=== PATIENT | male | born 1970 | race Caucasian/White ===

== ENCOUNTER 2019-03-29 15:29 | Emergency (ER) | payer SELFPAY ==
--- NOTE | 2019-03-29 15:49 | PDOC ---
Rapid Medical Evaluation Chief Complaint: Pain Time Seen by Provider: 03/29/19 15:46 Medical Evaluation: Allergies Allergy/AdvReac Type Severity Reaction Status Date / Time Penicillins Allergy Swelling Verified 09/21/15 16:24 03/29/19 15:47 I have performed a brief in-person evaluation of this patient. The patient presents with a chief complaint of: foot pain with traum/ stomped on 2 mos ago Pertinent physical exam findings: swelling and pain to left 5th toe I have ordered the following: xray left foot The patient will proceed to the ED for further evaluation. Discharge Disposition - Diagnosis Foot pain, left - Referrals - Patient Instructions - Post Discharge Activity
[2019-03-29 15:51] VITALS: BP 116/78; PULSE 60; TEMP 98.2; BMI 29.7
[2019-03-29] MEDS ORDERED: BACITRACIN 15 GM TUBE TOPICAL OINTMENT TP ONE (15:59)
[2019-03-29] MEDS ORDERED: IBUPROFEN 600 MG TABLET (FP) PO ONE ×2 (15:59→16:10)
--- NOTE | 2019-03-29 16:07 | PDOC ---
History of Present Illness - General Chief Complaint: Pain Stated Complaint: LT FOOT INJURY Time Seen by Provider: 03/29/19 15:46 History Source: Patient - History of Present Illness Initial Comments: 03/29/19 16:14 Chief complaint: Foot pain Patient is a 49-year-old male who denies any previous medical problems who states he recently returned from [place], 3 days ago after being in detention. He states that he has some aches and pains to his back and shoulders but came to the ER because he has pain to his foot and he has a wound. No fever. EMR review shows no significant medical visits to the hospital. Patient does not take medicines although he states he took medicines prior but does not remember what they are. No fever. GENERAL/CONSTITUTIONAL: No fever, weakness. dizziness HEAD, EYES, EARS, NOSE AND THROAT: No change in vision. No ear pain or discharge. No sore throat. CARDIOVASCULAR: No chest pain RESPIRATORY: No shortness of breath or cough GASTROINTESTINAL: No pain, nausea, vomiting, diarrhea or constipation GENITOURINARY: No dysuria MUSCULOSKELETAL: No neck or back pain, + left foot pain SKIN: No rash NEUROLOGIC: No headache, vertigo, loss of consciousness, or loss of sensation. GENERAL: The patient is awake, alert, and fully oriented, in no acute distress. HEAD: Normal with no signs of trauma. EYES: Pupils equal, round and reactive to light, sclera anicteric, conjunctiva clear. ENT: pharynx: no erythema, no exudate, uvula midline NECK: supple CHEST: clear, nontender, rr ABD: soft, nontender BACK: no tenderness or signs of injury EXTREMITIES: Left foot without gross swelling, presents of small ulcer on the medial side of the little toe, no gross erythema, no streaking, + tenderness and minimal swelling, neurovascular intact. Rest of extremities, normal range of motion, no edema. NEUROLOGICAL: Normal speech, normal gait. SKIN: Warm, Dry Past History - Past Medical History Allergies/Adverse Reactions: Allergies Allergy/AdvReac Type Severity Reaction Status Date / Time Penicillins Allergy Swelling Verified 03/29/19 15:51 Home Medications: Ambulatory Orders Cyclobenzaprine HCl [Flexeril] 5 mg PO TID PRN #20 tablet 09/21/15 Clindamycin [Cleocin -] 300 mg PO QID #21 capsule 03/29/19 COPD: No - Suicide/Smoking/Psychosocial Hx Smoking History: Never smoked Number of Cigarettes Smoked Daily: 5 Information on smoking cessation initiated: No Hx Alcohol Use: No Drug/Substance Use Hx: No Substance Use Type: None *Physical Exam - Vital Signs Last Vital Signs Temp Pulse Resp BP Pulse Ox 98.2 F 60 19 116/78 100 03/29/19 15:47 03/29/19 15:47 03/29/19 15:47 03/29/19 15:47 03/29/19 15:47 Medical Decision Making - Medical Decision Making 03/29/19 16:16 49-year-old male who came to the ER for left foot pain and wound. Patient has no fever and otherwise appears well, has small ulcer between the fourth and the fifth toes, no gross erythema or concerns for spreading infection. No labs indicated, patient will get x-ray and given that he is ALLERGIC to penicillin will be started on clindamycin and given wound care instructions, follow-up instructions. pt is ambulatory 03/29/19 16:38 Questionable fracture, no grossly displaced problem, will give wound care instructions, placed on clindamycin, and return instructions. Patient will follow-up with Dr. Brent Chaney 03/29/19 17:02 *DC/Admit/Observation/Transfer Diagnosis at time of Disposition: Foot pain, left - Discharge Dispostion Disposition: HOME Condition at time of disposition: Stable Decision to Admit order: No - Prescriptions Prescriptions: Clindamycin [Cleocin -] 300 mg PO QID #21 capsule - Referrals Referrals: Brent Vilchis MD [Staff Physician] - - Patient Instructions Printed Discharge Instructions: Skin Wound Additional Instructions: Clean with soap and water 2-3 times daily, apply bacitracin take the clindamycin 300 mg every 6 hours for 7 days Have her reevaluated if redness, pus, fever or getting worse Followup with your doctor tomorrow - Post Discharge Activity
== END 2019-03-29 16:51 | disposition home or self-care (01) ==
LOC: JERFT 15:29
DX: M79.672 Pain in left foot (principal); L97.521 Non-pressure chronic ulcer of other part of left foot limited to breakdown of skin
CPT/HCPCS: 73630-TC-LT; 99282-25

== ENCOUNTER 2024-12-20 14:54 | Emergency (ER) | payer OTHER ==
[2024-12-20 15:38] VITALS: BP 108/76; PULSE 50; RESP 18; TEMP 98; BMI 29.0
[2024-12-20] MEDS ORDERED: RABIES IMMUNE GLOBULIN/PF 300 UNIT/ML (5 ML) VIAL IM ONE (17:32)
[2024-12-20] MEDS ORDERED: RABIES IMMUNE GLOBULIN 300 UNITS/1 ML VIAL ONE (17:32)
[2024-12-20] MEDS ORDERED: RABIES VACCINE (PCEC)/PF 2.5 UNIT/VIAL IM ONE (17:32)
[2024-12-20] MEDS ORDERED: DIPHTH,PERTUSS(ACELL),TET 0.5 ML DISP.SYRIN IM ONE (17:33)
[2024-12-20] MEDS: DIPHTH,PERTUSS(ACELL),TET 0.5 ML DISP.SYRIN IM ONE (18:05)
[2024-12-20] MEDS: RABIES VACCINE (PCEC)/PF 2.5 UNIT/VIAL IM ONE (18:05)
[2024-12-20] MEDS: RABIES IMMUNE GLOBULIN 300 UNITS/1 ML VIAL IM ONE (18:06)
== END 2024-12-20 18:20 | disposition home or self-care (01) ==
LOC: JERFT 14:54
PROC: 3E0234Z Introduction of Serum, Toxoid and Vaccine into Muscle, Percutaneous Approach (ICD-10-PCS; principal; 2024-12-20)
PROC: 3E0234Z Introduction of Serum, Toxoid and Vaccine into Muscle, Percutaneous Approach (ICD-10-PCS; 2024-12-20)
DX: S31.030A Puncture wound without foreign body of lower back and pelvis without penetration into retroperitoneum, initial encounter (principal); W54.0XXA Bitten by dog, initial encounter
CPT/HCPCS: 90375; 90471; 90675; 90715; 99284-25

== ENCOUNTER 2024-12-23 12:13 | Emergency (ER) | payer OTHER ==
[2024-12-23] MEDS ORDERED: RABIES VACCINE (PCEC)/PF 2.5 UNIT/VIAL IM ONE (12:34)
[2024-12-23] MEDS: RABIES VACCINE (PCEC)/PF 2.5 UNIT/VIAL IM ONE (12:34)
[2024-12-23 12:40] VITALS: BP 117/74; PULSE 48; RESP 18; TEMP 98.1; BMI 63.8
== END 2024-12-23 13:10 | disposition home or self-care (01) ==
LOC: JERFT 12:13
PROC: 3E0234Z Introduction of Serum, Toxoid and Vaccine into Muscle, Percutaneous Approach (ICD-10-PCS; principal; 2024-12-23)
DX: Z23 Encounter for immunization (principal)
CPT/HCPCS: 90675; 99281-25

== ENCOUNTER 2025-01-03 16:19 | Emergency (ER) | payer OTHER ==
[2025-01-03 16:38] VITALS: BP 112/68; PULSE 48; RESP 18; TEMP 97.5; BMI 29.0
[2025-01-03] MEDS ORDERED: RABIES VACCINE (PCEC)/PF 2.5 UNIT/VIAL IM ONE (16:51)
[2025-01-03] MEDS: RABIES VACCINE (PCEC)/PF 2.5 UNIT/VIAL IM ONE (17:02)
== END 2025-01-03 17:09 | disposition home or self-care (01) ==
LOC: JERFT 16:19
PROC: 3E0234Z Introduction of Serum, Toxoid and Vaccine into Muscle, Percutaneous Approach (ICD-10-PCS; principal; 2025-01-03)
DX: Z29.14 Encounter for prophylactic rabies immune globulin (principal); Z76.0 Encounter for issue of repeat prescription
CPT/HCPCS: 90675; 99281-25